=== PATIENT | male | born 1955 | race Caucasian/White ===

== ENCOUNTER 2024-02-27 05:20 | Day surgery (SDC) | payer OTHER ==
[2024-02-27] MEDS ORDERED: fentaNYL 100 MCG/2 ML SDV IV ONE (05:21)
[2024-02-27] MEDS ORDERED: Midazolam 1 MG/ML 2 ML SDV IV ONE (05:21)
[2024-02-27] MEDS: Dextrose 5%-0.45% NaCl 1,000 ML IV SCH (05:52)
[2024-02-27] MEDS ORDERED: Midazolam 1 MG/ML 2 ML SDV ONE (06:11)
[2024-02-27] MEDS ORDERED: fentaNYL 100 MCG/2 ML SDV ONE (06:11)
[2024-02-27] MEDS: fentaNYL 100 MCG/2 ML SDV IV ONE ×2 (06:25→06:26)
[2024-02-27] MEDS: Midazolam 1 MG/ML 2 ML SDV IV ONE ×5 (06:26→06:35)
[2024-02-27 07:55] VITALS: BP 105/57; PULSE 72
== END 2024-02-27 08:00 | disposition home or self-care (01) ==
LOC: DL.ENDO 05:20
PROVIDERS: ATTEND Internal Medicine Gastroenterology
DX: Z12.11 Encounter for screening for malignant neoplasm of colon (principal); I10 Essential (primary) hypertension; E11.9 Type 2 diabetes mellitus without complications; E78.5 Hyperlipidemia, unspecified; K21.9 Gastro-esophageal reflux disease without esophagitis; M20.40 Other hammer toe(s) (acquired), unspecified foot; E66.09 Other obesity due to excess calories; Z68.30 Body mass index [BMI] 30.0-30.9, adult; Z79.84 Long term (current) use of oral hypoglycemic drugs; Z79.82 Long term (current) use of aspirin; Z79.899 Other long term (current) drug therapy
CPT/HCPCS: 45378; J2250; J3010; J7042

== ENCOUNTER 2025-06-27 11:04 | Emergency (ER) | payer OTHER ==
[2025-06-27 12:04] VITALS: BP 155/76; PULSE 69
== END 2025-06-27 12:03 | disposition home or self-care (01) ==
LOC: DL.ED 11:04
DX: S00.212A Abrasion of left eyelid and periocular area, initial encounter (principal); S80.212A Abrasion, left knee, initial encounter; S40.211A Abrasion of right shoulder, initial encounter; I10 Essential (primary) hypertension; E78.00 Pure hypercholesterolemia, unspecified; K21.9 Gastro-esophageal reflux disease without esophagitis; E11.9 Type 2 diabetes mellitus without complications; Z86.16 Personal history of COVID-19; Z79.899 Other long term (current) drug therapy; Z79.84 Long term (current) use of oral hypoglycemic drugs; Z79.82 Long term (current) use of aspirin; W01.198A Fall on same level from slipping, tripping and stumbling with subsequent striking against other object, initial encounter; Y93.89 Activity, other specified
CPT/HCPCS: 70450; 99284